=== PATIENT | female | born 1950 | race Caucasian/White ===

== ENCOUNTER 2016-11-19 02:50 | Emergency (ER) | payer OTHER ==
[~2016-11-19] VITALS: Ht 162.6 cm; Wt 127.0 kg
[2016-11-19] MEDS ORDERED: SODIUM CHLORIDE 0.9% 1,000 ML IVB ONE (03:17)
[2016-11-19 04:11] LABS: Basophils # (auto) 0 uL; Basophils % (auto) 0.5 % (0.0-2.0); Eosinophils # (auto) 0.4 uL; Eosinophils % (auto) 4.8 % (0.0-7.0); Hematocrit 39.7 % (36.0-46.0); Hemoglobin 13.9 g/dL (12.2-16.2); Lymphocytes # (auto) 2.5 uL; Lymphocytes % (auto) 30.5 % (10.0-50.0); Mean Corpuscular Hemoglobin 33.4 pg (28.0-32.0); Mean Corpuscular Hgb Conc. 34.9 g/dL (32.0-36.0); Mean Corpuscular Volume 95.7 fL (80.0-100.0); Mean Platelet Volume 7.4 fL (7.4-10.4); Monocytes # (auto) 0.7 uL; Monocytes % (auto) 7.9 % (0.0-12.0); Neutrophils # (auto) 4.7 uL; Neutrophils % (auto) 56.3 % (37.0-80.0); Platelet Count (auto) 284 10^3/uL (140-450); Red Cell Distribution Width 13.9 % (11.6-16.0); White Blood Cell 8.4 10^3/uL (4.4-10.8)
[2016-11-19 04:21] LABS: Acetaminophen < 2.0 ug/mL (10-30); Albumin 3.1 g/dL (3.4-5.0); BUN/Creatinine Ratio 25.7; Calcium 8.2 mg/dL (8.5-10.1); Salicylate 3.1 mg/dL (2.8-20.0)
[2016-11-19 04:22] LABS: Bilirubin, Total 0.2 mg/dL (0.2-1.0); Total Protein 6.8 g/dL (6.4-8.2)
[2016-11-19] MEDS ORDERED: LORazepam 2MG/ML-1ML VIAL ONE (05:07)
[2016-11-19] MEDS ORDERED: LORazepam 2MG/ML-1ML VIAL IV ONE ×2 (05:15→07:00)
[2016-11-19 05:24] LABS: Urine RBC None Seen /hpf (0 - 4)
[2016-11-19 05:35] LABS: Urine Bilirubin Negative (Negative); Urine Blood Negative /uL (Negative); Urine Color Yellow (Yellow); Urine Glucose Normal (Normal); Urine Ketone Negative (Negative); Urine Nitrite Negative (Negative); Urine Squamous Epithelial Cell FEW /hpf (<5); Urine Urobilinogen Normal (Negative)
[2016-11-19] MEDS ORDERED: diphenhdrAMINE HCL 50 MG/1 ML VL IV ONE (07:00)
[2016-11-19 14:13] VITALS: BP 116/85
== END 2016-11-19 14:30 | disposition home or self-care (01) ==
LOC: ER 02:50
DX: F10.120 Alcohol abuse with intoxication, uncomplicated (principal); G89.29 Other chronic pain; M54.9 Dorsalgia, unspecified
CPT/HCPCS: 36415; 70450; 71010; 80053; 80307; 80320; 80329; 81001; 85025; 96361; 96374; 96375; 96376; 99285; J1200; J2060; J7030; 93005; A4565

== ENCOUNTER 2018-11-18 00:57 | Emergency (ER) | payer MEDICARE, OTHER ==
[~2018-11-18] VITALS: Ht 162.6 cm; Wt 104.3 kg
[2018-11-18] MEDS ORDERED: IBUPROFEN 600 MG TAB PO ONE (01:30)
[2018-11-18 03:28] LABS: Basophils # (auto) 0 uL; Basophils % (auto) 0.5 % (0.0-2.0); Eosinophils # (auto) 0.1 uL; Eosinophils % (auto) 0.9 % (0.0-7.0); Hematocrit 42.1 % (36.0-46.0); Hemoglobin 14.5 g/dL (12.2-16.2); Lymphocytes # (auto) 1.3 uL; Lymphocytes % (auto) 15.4 % (10.0-50.0); Mean Corpuscular Hemoglobin 33.7 pg (28.0-32.0); Mean Corpuscular Hgb Conc. 34.5 g/dL (32.0-36.0); Mean Corpuscular Volume 97.7 fL (80.0-100.0); Monocytes # (auto) 0.9 uL; Monocytes % (auto) 10.8 % (0.0-12.0); Neutrophils # (auto) 6.3 uL; Neutrophils % (auto) 72.4 % (37.0-80.0); Platelet Count (auto) 158 10^3/uL (140-450); Red Blood Cells 4.31 10^6/uL (4.0-5.20); Red Cell Distribution Width 13.5 % (11.8-14.3); White Blood Cell 8.7 10^3/uL (4.4-10.8)
[2018-11-18 03:47] LABS: Anion Gap 9 (5-15); Blood Urea Nitrogen 18 mg/dL (7-18); Calcium 8.4 mg/dL (8.5-10.1); Carbon Dioxide 25 mmol/L (21-32); Chloride 101 mmol/L (98-107); Glucose 223 mg/dL (74-106); Potassium 3.7 mmol/L (3.5-5.1); Sodium 135 mmol/L (136-145)
[2018-11-18 03:52] LABS: Alanine Aminotransferase 55 U/L (13-56); Alkaline Phosphatase 88 U/L (45-117); Aspartate Aminotransferase 45 U/L (15-37); BUN/Creatinine Ratio 21.2; Bilirubin, Total 1.4 mg/dL (0.2-1.0); GFR African American 86 mL/min; GFR Non-African American 71 mL/min; Total Protein 6.9 g/dL (6.4-8.2)
[2018-11-18] MEDS ORDERED: HYDROcodone-ACET 5/325MG TAB PO ONE (05:00)
[2018-11-18 06:24] LABS: Urine Bacteria FEW /hpf (None Seen); Urine Blood Negative /uL (Negative); Urine Specific Gravity 1.022 (1.001-1.035); Urine WBC 1 /hpf (0 - 5)
[2018-11-18 07:24] VITALS: BP 121/67
== END 2018-11-18 09:21 | disposition left against medical advice (07) ==
LOC: EDBD 00:57 → ER 01:07
DX: J18.9 Pneumonia, unspecified organism (principal); I11.0 Hypertensive heart disease with heart failure; I50.9 Heart failure, unspecified; E11.9 Type 2 diabetes mellitus without complications
CPT/HCPCS: 36415; 71045; 80053; 81001; 84484; 85025; 93005

== ENCOUNTER 2019-08-08 13:55 | Emergency (ER) | payer BC, MEDICARE, OTHER ==
[~2019-08-08] VITALS: Ht 162.6 cm; Wt 86.2 kg
[2019-08-08 14:10] VITALS: BP 153/94
== END 2019-08-08 14:16 | disposition left against medical advice (07) ==
LOC: ER 13:55
DX: R51 Headache (principal); Z53.21 Procedure and treatment not carried out due to patient leaving prior to being seen by health care provider

== ENCOUNTER 2019-08-10 07:07 | Emergency (ER) | payer BC ==
[~2019-08-10] VITALS: Ht 162.6 cm; Wt 86.2 kg
[2019-08-10 07:28] VITALS: BP 169/92
== END 2019-08-10 07:47 | disposition home or self-care (01) ==
LOC: ER 07:07
DX: I11.0 Hypertensive heart disease with heart failure (principal); I50.9 Heart failure, unspecified; E11.9 Type 2 diabetes mellitus without complications; Z76.0 Encounter for issue of repeat prescription; Z88.1 Allergy status to other antibiotic agents

== ENCOUNTER 2019-12-30 10:35 | Emergency (ER) | payer BC ==
[~2019-12-30] VITALS: Ht 162.6 cm; Wt 104.3 kg
[2019-12-30 10:44] VITALS: BP 188/79
== END 2019-12-30 11:31 | disposition home or self-care (01) ==
LOC: ER 10:35
DX: S01.01XD Laceration without foreign body of scalp, subsequent encounter (principal); X58.XXXD Exposure to other specified factors, subsequent encounter

== ENCOUNTER 2020-04-25 02:12 | Inpatient (IN) | payer BC ==
[~2020-04-25] VITALS: Ht 162.6 cm; Wt 103.0 kg
[2020-04-25] MEDS ORDERED: KETOROLAC TROMETH 60MG/2ML VIAL IM ONE (02:30)
[2020-04-25] MEDS ORDERED: HYDROmorphone HCL 2 MG/ML VL IM ONE ×2 (02:30→05:45)
[2020-04-25] MEDS ORDERED: DexAMETHasone SOD PHOS 10MG/1ML VIAL INJ IM ONE (02:30)
[2020-04-25] MEDS ORDERED: ONDANSETRON HCL 4 MG/2 ML VIAL IV PRN (07:00)
[2020-04-25] MEDS ORDERED: ACETAMINOPHEN 325 MG TAB PO PRN (07:00)
[2020-04-25] MEDS ORDERED: TEMAZEPAM 15 MG CAP PO PRN (07:00)
[2020-04-25] MEDS ORDERED: DEXTROSE (50%) 50ML SYRG IV PRN (07:00)
[2020-04-25] MEDS ORDERED: MORPHINE SULFATE 4 MG/ML SYR/VIAL IV PRN (07:00)
[2020-04-25 07:24] LABS: Basophils # (auto) 0 10 ^3/uL (0-0.2); Eosinophils # (auto) 0 10 ^3/uL (0-0.8); Lymphocytes # (auto) 0.4 10 ^3/uL (0.4-5.4); Monocytes # (auto) 0.1 10 ^3/uL (0-1.3); Neutrophils # (auto) 1.9 10 ^3/uL (1.6-8.6); White Blood Cell 2.4 10^3/uL (4.4-10.8)
[2020-04-25 07:27] LABS: Basophils % (auto) 1.6 % (0.0-2.0); Eosinophils % (auto) 0.9 % (0.0-7.0); Hematocrit 40.8 % (36.0-46.0); Lymphocytes % (auto) 16.2 % (10.0-50.0); Mean Corpuscular Hemoglobin 36.4 pg (28.0-32.0); Mean Corpuscular Hgb Conc. 34.4 g/dL (32.0-36.0); Monocytes % (auto) 2.1 % (0.0-12.0); Neutrophils % (auto) 79.2 % (37.0-80.0); Platelet Count (auto) 161 10^3/uL (140-450); Red Blood Cells 3.85 10^6/uL (4.0-5.20); Red Cell Distribution Width 13.8 % (11.8-14.3)
[2020-04-25] MEDS: ACCU-CHEK COMFORT CURVE STRIP VI SCH ×4 (07:40→21:44)
[2020-04-25] MEDS: InsuLIN REG 1unit/0.01ml Soln (100units/ml) SC SCH ×3 (07:40→17:46)
[2020-04-25 07:44] LABS: Calcium 8.8 mg/dL (8.5-10.1); Potassium 4.9 mmol/L (3.5-5.1)
[2020-04-25 07:50] LABS: Albumin 3.2 g/dL (3.4-5.0); BUN/Creatinine Ratio 27.5; Bilirubin, Total 0.3 mg/dL (0.2-1.0); Total Protein 7.3 g/dL (6.4-8.2)
[2020-04-25] MEDS: HCTZ 25 MG TAB PO SCH (09:45)
[2020-04-25] MEDS: HYDROcodone-ACET 5/325MG TAB PO PRN ×2 (09:46→18:48)
[2020-04-25] MEDS: FAMOTIDINE 20 MG TAB PO SCH ×2 (09:46→21:39)
[2020-04-25] MEDS: LISINOPRIL 20 MG TAB PO SCH (09:46)
[2020-04-25] MEDS ORDERED: LISI-285 PO (12:11)
[2020-04-25] MEDS ORDERED: DULO60CA90 PO (12:11)
[2020-04-25] MEDS ORDERED: METF-490 PO (12:11)
[2020-04-25 13:00] VITALS: BP_SYST 141; BP_SYST 151; BP_DIAS 89; BP_DIAS 93
[2020-04-25] MEDS ORDERED: ROPI2TAB47 PO (14:16)
[2020-04-25] MEDS ORDERED: INFLUENZA QUAD 2020-2021 0.5 ML SYRG IM ONE (14:30)
[2020-04-25 16:56] LABS: Hepatitis B Surface Antibody Positive
[2020-04-25 17:00] VITALS: BP 133/78
[2020-04-25 17:23] LABS: Hepatitis B Surface Antigen Negative (Negative)
[2020-04-25 17:34] LABS: Hepatitis A Total Antibody Negative
[2020-04-25 18:01] LABS: Hepatitis B Core Total AB Negative; Hepatitis C Antibody Negative (Negative)
[2020-04-25 18:16] LABS: Urine Bacteria NONE SEEN /hpf (None Seen); Urine Blood Negative /uL (Negative); Urine Specific Gravity 1.026 (1.001-1.035); Urine WBC 10 /hpf (0 - 5)
[2020-04-25 18:26] LABS: Alcohol, Urine < 3.0 mg/dL (0-10); Amphetamine Screen, Urine NEGATIVE (NEGATIVE); Barbiturate Scree,Urine NEGATIVE (NEGATIVE); Benzodiazephine Screen, Urine NEGATIVE (NEGATIVE); Cannabinoid Screen, Urine NEGATIVE (NEGATIVE); Cocaine Screen, Urine NEGATIVE (NEGATIVE); Phencyclidine Screen, Urine NEGATIVE (NEGATIVE)
[2020-04-25 18:35] LABS: Opiate Scree,Urine POSITIVE (NEGATIVE)
[2020-04-25 19:51] LABS: Salicylate 3.9 mg/dL (2.8-20.0)
[2020-04-25 19:52] LABS: Acetaminophen < 2.0 ug/mL (10-30)
[2020-04-25] MEDS: MORPHINE SULF INJ 2 MG/ML SYRINGE 1ML IV PRN (21:39)
[2020-04-25 22:00] VITALS: BP 142/84
[2020-04-25] MEDS ORDERED: ATORVASTATIN 20 MG TAB PO SCH (22:00)
[2020-04-25] MEDS ORDERED: InsuLIN REG 1unit/0.01ml Soln (100units/ml) SC SCH (22:00)
[2020-04-25] MEDS ORDERED: HYDROcodone-ACET 10/325MG TAB PO PRN (23:45)
[2020-04-25] MEDS: HYDROcodone-ACET 10/325MG TAB PO PRN (23:56)
[2020-04-26] MEDS: MORPHINE SULF INJ 2 MG/ML SYRINGE 1ML IV PRN (01:45)
[2020-04-26] MEDS ORDERED: CARISOPRODOL 350 MG TAB PO PRN (02:45)
[2020-04-26] MEDS ORDERED: PRAMIPEXOLE DIHYDROCHLORIDE MO 0.25 MG TAB PO PRN (04:30)
[2020-04-26 05:00] VITALS: BP 122/72
[2020-04-26] MEDS ORDERED: NICOTINE 21MG/24 HR TOPICAL PATCH TD SCH ×2 (05:00→10:00)
[2020-04-26] MEDS ORDERED: PRAMIPEXOLE DIHYDROCHLORIDE MO 0.25 MG TAB PO ONE (05:15)
[2020-04-26] MEDS: ACCU-CHEK COMFORT CURVE STRIP VI SCH ×2 (06:38→12:09)
[2020-04-26] MEDS: InsuLIN REG 1unit/0.01ml Soln (100units/ml) SC SCH ×3 (06:42→12:10)
[2020-04-26 07:58] LABS: Basophils # (auto) 0 10 ^3/uL (0-0.2); Eosinophils # (auto) 0 10 ^3/uL (0-0.8); Monocytes # (auto) 0.7 10 ^3/uL (0-1.3); Neutrophils # (auto) 5.4 10 ^3/uL (1.6-8.6); White Blood Cell 7.1 10^3/uL (4.4-10.8)
[2020-04-26 08:01] LABS: Basophils % (auto) 0.2 % (0.0-2.0); Hematocrit 38.9 % (36.0-46.0); Hemoglobin 13.6 g/dL (12.2-16.2); Lymphocytes % (auto) 13.8 % (10.0-50.0); Mean Corpuscular Hemoglobin 36.4 pg (28.0-32.0); Mean Corpuscular Hgb Conc. 34.9 g/dL (32.0-36.0); Mean Corpuscular Volume 104.4 fL (80.0-100.0); Monocytes % (auto) 10.4 % (0.0-12.0); Neutrophils % (auto) 75.6 % (37.0-80.0); Platelet Count (auto) 176 10^3/uL (140-450); Red Blood Cells 3.73 10^6/uL (4.0-5.20)
[2020-04-26 08:15] LABS: INR 1.04 (0.9-1.15); Partial Thromboplastin Time 23.8 sec (23.0-31.2)
[2020-04-26 08:29] LABS: Potassium 4.2 mmol/L (3.5-5.1)
[2020-04-26 08:37] LABS: Albumin 3.3 g/dL (3.4-5.0); BUN/Creatinine Ratio 46.2; Bilirubin, Total 0.8 mg/dL (0.2-1.0); Total Protein 7.4 g/dL (6.4-8.2)
[2020-04-26] MEDS: FAMOTIDINE 20 MG TAB PO SCH (09:27)
[2020-04-26] MEDS: HYDROcodone-ACET 10/325MG TAB PO PRN ×2 (09:28→15:52)
[2020-04-26] MEDS: HCTZ 25 MG TAB PO SCH (09:48)
[2020-04-26] MEDS: LISINOPRIL 20 MG TAB PO SCH (09:49)
== END 2020-04-26 18:00 | disposition home or self-care (01) | DRG 552 ==
LOC: EDBD 02:12 → ER 02:17 → OVERFLOW 02:18 → WEST WING 10:26
PROVIDERS: ADMIT Nurse Practitioner; ATTEND Internal Medicine
DX: M51.35 Other intervertebral disc degeneration, thoracolumbar region (principal); E11.9 Type 2 diabetes mellitus without complications; E66.01 Morbid (severe) obesity due to excess calories; G25.81 Restless legs syndrome; G89.29 Other chronic pain; I11.0 Hypertensive heart disease with heart failure; I50.9 Heart failure, unspecified; F32.9 Major depressive disorder, single episode, unspecified; Z98.51 Tubal ligation status; Z88.1 Allergy status to other antibiotic agents; R94.5 Abnormal results of liver function studies; Z68.39 Body mass index [BMI] 39.0-39.9, adult
CPT/HCPCS: 36415; 72131; 76705; 80053; 80307; 80329; 81001; 82962; 83036; 84443; 85025; 85610; 85730; 86704; 86706; 86708; 86803; 87340; 96372; G0378; J1100; J1815; J1885

== ENCOUNTER 2020-10-22 08:12 | Emergency (ER) | payer BC, OTHER ==
[~2020-10-22] VITALS: Ht 162.6 cm; Wt 108.9 kg
[~2020-10-22 08:12] MED LIST: DULO60CA90 PO; LISI-285 PO; METF-490 PO; ROPI2TAB47 PO
[2020-10-22] MEDS ORDERED: MORPHINE SULF INJ 2 MG/ML SYRINGE 1ML IV ONE (09:00)
[2020-10-22] MEDS ORDERED: ONDANSETRON HCL 4 MG/2 ML VIAL IV ONE (09:00)
[2020-10-22] MEDS ORDERED: FUROSEMIDE 40 MG/4 ML VIAL IV ONE (09:00)
[2020-10-22 09:12] LABS: Basophils # (auto) 0 10 ^3/uL (0-0.2); Eosinophils # (auto) 0.4 10 ^3/uL (0-0.8); Monocytes # (auto) 0.6 10 ^3/uL (0-1.3); White Blood Cell 6.1 10^3/uL (4.4-10.8)
[2020-10-22 09:14] LABS: Basophils % (auto) 0.7 % (0.0-2.0); Eosinophils % (auto) 6.2 % (0.0-7.0); Hematocrit 40.4 % (36.0-46.0); Lymphocytes # (auto) 1.1 10 ^3/uL (0.4-5.4); Lymphocytes % (auto) 18.3 % (10.0-50.0); Mean Corpuscular Hemoglobin 35.6 pg (28.0-32.0); Mean Corpuscular Hgb Conc. 34.6 g/dL (32.0-36.0); Mean Corpuscular Volume 102.9 fL (80.0-100.0); Monocytes % (auto) 9.2 % (0.0-12.0); Neutrophils % (auto) 65.6 % (37.0-80.0); Nucleated Red Blood Cells % 0.2 %; Platelet Count (auto) 179 10^3/uL (140-450); Red Blood Cells 3.93 10^6/uL (4.0-5.20); Red Cell Distribution Width 13.5 % (11.8-14.3)
[2020-10-22 09:20] LABS: Urine Bacteria NONE SEEN /hpf (None Seen); Urine Blood Negative /uL (Negative); Urine Specific Gravity 1.021 (1.001-1.035); Urine WBC 2 /hpf (0 - 5)
[2020-10-22 09:30] LABS: Albumin 3.1 g/dL (3.4-5.0); Calcium 9.1 mg/dL (8.5-10.1); Potassium 3.7 mmol/L (3.5-5.1)
[2020-10-22 09:33] LABS: BUN/Creatinine Ratio 16.7; Bilirubin, Total 0.9 mg/dL (0.2-1.0); Total Protein 7.3 g/dL (6.4-8.2)
[2020-10-22 10:39] VITALS: BP 139/84
[2020-10-22] MEDS ORDERED: KETOROLAC TROMETH 30 MG/ML 1ML VIAL IV ONE (10:45)
== END 2020-10-22 11:55 | disposition left against medical advice (07) ==
LOC: ER 08:12
DX: I11.0 Hypertensive heart disease with heart failure (principal); I50.9 Heart failure, unspecified; E11.9 Type 2 diabetes mellitus without complications; I10 Essential (primary) hypertension; Z88.1 Allergy status to other antibiotic agents; Z88.8 Allergy status to other drugs, medicaments and biological substances; Z79.4 Long term (current) use of insulin
CPT/HCPCS: 36415; 80053; 81001; 83880; 85025; 96374; 96375; 99284; J1885; J1940; J2270; J2405

== ENCOUNTER 2020-11-06 19:22 | Emergency (ER) | payer OTHER ==
[~2020-11-06] VITALS: Ht 162.6 cm; Wt 117.9 kg
[2020-11-06 19:23] VITALS: BP 139/83
== END 2020-11-06 20:09 | disposition left against medical advice (07) ==
LOC: ER 19:28
DX: M79.89 Other specified soft tissue disorders (principal); Z53.21 Procedure and treatment not carried out due to patient leaving prior to being seen by health care provider

== ENCOUNTER 2020-11-08 08:55 | Emergency (ER) | payer OTHER ==
[~2020-11-08] VITALS: Ht 162.6 cm; Wt 117.9 kg
[2020-11-08] MEDS ORDERED: CLINDAMYCIN 600MG IV 50 ML IV ONE (09:30)
[2020-11-08] MEDS ORDERED: MORPHINE SULF INJ 2 MG/ML SYRINGE 1ML IV ONE (09:45)
[2020-11-08] MEDS ORDERED: ONDANSETRON HCL 4 MG/2 ML VIAL IV ONE (09:45)
[2020-11-08 09:53] LABS: Hemoglobin 13.6 g/dL (12.2-16.2); Lymphocytes # (auto) 1.3 10 ^3/uL (0.4-5.4); Monocytes # (auto) 0.6 10 ^3/uL (0-1.3); Nucleated Red Blood Cells % 0.1 %
[2020-11-08 09:55] LABS: Basophils # (auto) 0.1 10 ^3/uL (0-0.2); Basophils % (auto) 0.8 % (0.0-2.0); Eosinophils # (auto) 0.2 10 ^3/uL (0-0.8); Eosinophils % (auto) 3.7 % (0.0-7.0); Lymphocytes % (auto) 19.3 % (10.0-50.0); Mean Corpuscular Hemoglobin 36.8 pg (28.0-32.0); Mean Corpuscular Hgb Conc. 35.8 g/dL (32.0-36.0); Mean Corpuscular Volume 102.7 fL (80.0-100.0); Monocytes % (auto) 9.3 % (0.0-12.0); Neutrophils # (auto) 4.5 10 ^3/uL (1.6-8.6); Neutrophils % (auto) 66.9 % (37.0-80.0); Platelet Count (auto) 163 10^3/uL (140-450); Red Cell Distribution Width 13.2 % (11.8-14.3); White Blood Cell 6.7 10^3/uL (4.4-10.8)
[2020-11-08 10:10] LABS: Calcium 9.1 mg/dL (8.5-10.1); Potassium 4.3 mmol/L (3.5-5.1)
[2020-11-08 10:13] LABS: Bilirubin, Total 0.8 mg/dL (0.2-1.0); Total Protein 7.3 g/dL (6.4-8.2)
[2020-11-08 10:58] LABS: Urine WBC None Seen /hpf (0 - 5)
[2020-11-08] MEDS ORDERED: LORazepam 2MG/ML-1ML VIAL IV ONE (11:00)
[2020-11-08 11:34] LABS: Urine Bacteria NONE SEEN /hpf (None Seen); Urine Blood Negative /uL (Negative)
[2020-11-08 12:58] VITALS: BP 123/49
[2020-11-08] MEDS ORDERED: InsuLIN REG 1unit/0.01ml Soln (100units/ml) IV ONE (13:00)
[2020-11-08] MEDS ORDERED: FUROSEMIDE 20 MG/2 ML VIAL IV ONE (13:30)
[2020-11-08] MEDS ORDERED: HYDROmorphone HCL 2 MG/ML VL IV ONE (13:30)
== END 2020-11-08 14:28 | disposition admitted as inpatient to this hospital (09) ==
LOC: ER 08:55
DX: L03.115 Cellulitis of right lower limb (principal); L03.116 Cellulitis of left lower limb; I11.0 Hypertensive heart disease with heart failure; I50.9 Heart failure, unspecified; E11.9 Type 2 diabetes mellitus without complications; Z88.1 Allergy status to other antibiotic agents; Z88.8 Allergy status to other drugs, medicaments and biological substances; Z79.899 Other long term (current) drug therapy; Z20.822 Contact with and (suspected) exposure to COVID-19
CPT/HCPCS: 36415; 80053; 81001; 82962; 83605; 83880; 85025; 87040; 87426; 93970; 96365; 96375; 99285; J1170; J1815; J1940; J2060; J2270; J2405; J3490

== ENCOUNTER 2020-11-12 10:12 | Emergency (ER) | payer OTHER ==
[~2020-11-12] VITALS: Ht 162.6 cm; Wt 113.4 kg
[2020-11-12 10:55] LABS: Basophils # (auto) 0 10 ^3/uL (0-0.2); Eosinophils # (auto) 0.2 10 ^3/uL (0-0.8)
[2020-11-12 10:56] LABS: Basophils % (auto) 0.6 % (0.0-2.0); Eosinophils % (auto) 3.2 % (0.0-7.0); Hematocrit 41.1 % (36.0-46.0); Hemoglobin 14.3 g/dL (12.2-16.2); Lymphocytes # (auto) 1.8 10 ^3/uL (0.4-5.4); Lymphocytes % (auto) 26.6 % (10.0-50.0); Mean Corpuscular Hemoglobin 36.1 pg (28.0-32.0); Mean Corpuscular Hgb Conc. 34.9 g/dL (32.0-36.0); Mean Corpuscular Volume 103.5 fL (80.0-100.0); Monocytes # (auto) 0.9 10 ^3/uL (0-1.3); Monocytes % (auto) 12.8 % (0.0-12.0); Neutrophils # (auto) 3.8 10 ^3/uL (1.6-8.6); Neutrophils % (auto) 56.8 % (37.0-80.0); Platelet Count (auto) 190 10^3/uL (140-450); Red Blood Cells 3.97 10^6/uL (4.0-5.20); Red Cell Distribution Width 13.6 % (11.8-14.3); White Blood Cell 6.7 10^3/uL (4.4-10.8)
[2020-11-12 11:12] LABS: Albumin 3.1 g/dL (3.4-5.0); Calcium 9.5 mg/dL (8.5-10.1); Potassium 3.9 mmol/L (3.5-5.1)
[2020-11-12 11:16] LABS: BUN/Creatinine Ratio 22.4; Bilirubin, Total 1.3 mg/dL (0.2-1.0); Total Protein 7.8 g/dL (6.4-8.2)
[2020-11-12 13:08] VITALS: BP 121/67
== END 2020-11-12 13:10 | disposition home or self-care (01) ==
LOC: ER 10:12
DX: L03.115 Cellulitis of right lower limb (principal); L03.116 Cellulitis of left lower limb; I10 Essential (primary) hypertension; E11.9 Type 2 diabetes mellitus without complications; Z79.899 Other long term (current) drug therapy; Z88.1 Allergy status to other antibiotic agents; Z88.8 Allergy status to other drugs, medicaments and biological substances
CPT/HCPCS: 36415; 80053; 85025

== ENCOUNTER 2020-11-19 10:19 | Inpatient (IN) | payer BC, OTHER ==
[~2020-11-19] VITALS: Ht 162.6 cm; Wt 105.3 kg
[2020-11-19 10:45] LABS: Basophils # (auto) 0 10 ^3/uL (0-0.2); Eosinophils # (auto) 0.2 10 ^3/uL (0-0.8); Hemoglobin 13.3 g/dL (12.2-16.2); Lymphocytes # (auto) 0.9 10 ^3/uL (0.4-5.4); Monocytes # (auto) 0.5 10 ^3/uL (0-1.3); Neutrophils # (auto) 4.2 10 ^3/uL (1.6-8.6); White Blood Cell 5.9 10^3/uL (4.4-10.8)
[2020-11-19 10:46] LABS: Basophils % (auto) 0.6 % (0.0-2.0); Hematocrit 37.7 % (36.0-46.0); Lymphocytes % (auto) 16.2 % (10.0-50.0); Mean Corpuscular Hemoglobin 35.8 pg (28.0-32.0); Mean Corpuscular Hgb Conc. 35.4 g/dL (32.0-36.0); Mean Corpuscular Volume 101.2 fL (80.0-100.0); Neutrophils % (auto) 71.2 % (37.0-80.0); Nucleated Red Blood Cells % 0.1 %; Platelet Count (auto) 179 10^3/uL (140-450); Red Blood Cells 3.73 10^6/uL (4.0-5.20); Red Cell Distribution Width 12.8 % (11.8-14.3)
[2020-11-19 11:04] LABS: Albumin 2.9 g/dL (3.4-5.0); Calcium 8.8 mg/dL (8.5-10.1); Magnesium 1.7 mg/dL (1.6-2.6); Potassium 3.8 mmol/L (3.5-5.1)
[2020-11-19 11:06] LABS: Bilirubin, Total 0.6 mg/dL (0.2-1.0); Total Protein 7.4 g/dL (6.4-8.2)
[2020-11-19] MEDS ORDERED: MORPHINE SULFATE 4 MG/ML SYR/VIAL IV ONE (12:45)
[2020-11-19] MEDS ORDERED: ONDANSETRON HCL 4 MG/2 ML VIAL IV ONE (12:45)
[2020-11-19] MEDS ORDERED: CLINDAMYCIN 600MG IV 50 ML IV ONE (12:45)
[2020-11-19 17:20] LABS: Urine Bacteria FEW /hpf (None Seen); Urine Blood Negative /uL (Negative); Urine WBC 3 /hpf (0 - 5)
[2020-11-19] MEDS ORDERED: MORPHINE SULF INJ 2 MG/ML SYRINGE 1ML IV PRN (18:30)
[2020-11-19] MEDS ORDERED: ACETAMINOPHEN 325 MG TAB PO PRN (18:30)
[2020-11-19] MEDS ORDERED: DEXTROSE (50%) 50ML SYRG IV PRN (18:30)
[2020-11-19] MEDS ORDERED: NITROGLYCERIN 0.4 MG SL TAB SL PRN (18:30)
[2020-11-19] MEDS ORDERED: MORPHINE SULF INJ 2 MG/ML SYRINGE 1ML ONE (19:04)
[2020-11-19] MEDS: MORPHINE SULF INJ 2 MG/ML SYRINGE 1ML IV PRN (19:08)
[2020-11-19 19:13] LABS: Cholesterol 176 mg/dL (< 200)
[2020-11-19 19:17] LABS: HDL Cholesterol 48 mg/dL (40-59); LDL Cholesterol 107 mg/dL (< 100); Triglycerides 126 mg/dL (< 150)
[2020-11-19 22:00] VITALS: BP 137/70
[2020-11-19] MEDS: CLINDAMYCIN 600MG IV 50 ML IV SCH (22:25)
[2020-11-19] MEDS: ACCU-CHEK COMFORT CURVE STRIP VI SCH (22:25)
[2020-11-19] MEDS: DULoxetine HCL 30 MG CAP PO SCH (22:25)
[2020-11-19] MEDS: InsuLIN REG 1unit/0.01ml Soln (100units/ml) SC SCH (22:26)
[2020-11-19] MEDS: HYDROcodone-ACET 5/325MG TAB PO PRN (22:50)
[2020-11-20] VITALS (8 sets, daily range): BP systolic 85–137; BP diastolic 38–70
[2020-11-20] MEDS: MORPHINE SULF INJ 2 MG/ML SYRINGE 1ML IV PRN ×3 (01:10→15:41)
[2020-11-20 03:26] LABS: Eosinophils # (auto) 0.4 10 ^3/uL (0-0.8); Eosinophils % (auto) 6.3 % (0.0-7.0); Nucleated Red Blood Cells % 0.1 %
[2020-11-20 03:29] LABS: Basophils # (auto) 0 10 ^3/uL (0-0.2); Basophils % (auto) 0.8 % (0.0-2.0); Hematocrit 36.2 % (36.0-46.0); Hemoglobin 12.5 g/dL (12.2-16.2); Lymphocytes # (auto) 1.2 10 ^3/uL (0.4-5.4); Lymphocytes % (auto) 19.4 % (10.0-50.0); Mean Corpuscular Hemoglobin 35.1 pg (28.0-32.0); Mean Corpuscular Hgb Conc. 34.6 g/dL (32.0-36.0); Mean Corpuscular Volume 101.4 fL (80.0-100.0); Monocytes # (auto) 0.6 10 ^3/uL (0-1.3); Monocytes % (auto) 9.8 % (0.0-12.0); Neutrophils # (auto) 3.9 10 ^3/uL (1.6-8.6); Neutrophils % (auto) 63.7 % (37.0-80.0); Platelet Count (auto) 162 10^3/uL (140-450); Red Blood Cells 3.57 10^6/uL (4.0-5.20); Red Cell Distribution Width 12.7 % (11.8-14.3); White Blood Cell 6.1 10^3/uL (4.4-10.8)
[2020-11-20 03:44] LABS: Potassium 4.2 mmol/L (3.5-5.1)
[2020-11-20 03:45] LABS: BUN/Creatinine Ratio 21.5; Calcium 8.7 mg/dL (8.5-10.1)
[2020-11-20] MEDS: CLINDAMYCIN 600MG IV 50 ML IV SCH ×3 (05:51→21:40)
[2020-11-20] MEDS: ACCU-CHEK COMFORT CURVE STRIP VI SCH ×4 (05:51→21:40)
[2020-11-20] MEDS: InsuLIN REG 1unit/0.01ml Soln (100units/ml) SC SCH ×4 (05:52→21:54)
[2020-11-20] MEDS: HYDROcodone-ACET 5/325MG TAB PO PRN ×2 (05:58→12:34)
[2020-11-20] MEDS: FUROSEMIDE 20 MG/2 ML VIAL IV SCH ×2 (06:00→17:01)
[2020-11-20] MEDS: POTASSIUM CHL 20 Meq TABLET PO SCH (09:13)
[2020-11-20] MEDS: DULoxetine HCL 30 MG CAP PO SCH ×2 (09:13→21:40)
[2020-11-20] MEDS: cefTRIAXone 1GM/50ML D5W 50 ML IV SCH (09:13)
[2020-11-20] MEDS ORDERED: PRAMIPEXOLE DIHYDROCHLORIDE MO 0.25 MG TAB PO ONE (14:15)
[2020-11-20] MEDS: LORazepam 2MG/ML-1ML VIAL IV PRN (21:55)
[2020-11-21] MEDS: MORPHINE SULF INJ 2 MG/ML SYRINGE 1ML IV PRN ×4 (02:34→22:11)
[2020-11-21 04:38] VITALS: BP 96/65
[2020-11-21] MEDS: HYDROcodone-ACET 5/325MG TAB PO PRN ×3 (05:00→20:38)
[2020-11-21 05:20] LABS: Basophils # (auto) 0 10 ^3/uL (0-0.2); Eosinophils # (auto) 0.4 10 ^3/uL (0-0.8); Eosinophils % (auto) 7.1 % (0.0-7.0); Hemoglobin 12.8 g/dL (12.2-16.2); Lymphocytes % (auto) 20.2 % (10.0-50.0); Monocytes # (auto) 0.5 10 ^3/uL (0-1.3); Monocytes % (auto) 10.1 % (0.0-12.0); Neutrophils # (auto) 3.1 10 ^3/uL (1.6-8.6); Nucleated Red Blood Cells % 0.1 %
[2020-11-21 05:24] LABS: Basophils % (auto) 0.7 % (0.0-2.0); Hematocrit 36.6 % (36.0-46.0); Mean Corpuscular Hemoglobin 35.8 pg (28.0-32.0); Mean Corpuscular Volume 102.2 fL (80.0-100.0); Neutrophils % (auto) 61.9 % (37.0-80.0); Platelet Count (auto) 158 10^3/uL (140-450); Red Blood Cells 3.58 10^6/uL (4.0-5.20); Red Cell Distribution Width 13.2 % (11.8-14.3)
[2020-11-21] MEDS: LORazepam 2MG/ML-1ML VIAL IV PRN ×2 (05:25→19:58)
[2020-11-21] MEDS: CLINDAMYCIN 600MG IV 50 ML IV SCH ×3 (05:26→21:17)
[2020-11-21] MEDS: FUROSEMIDE 20 MG/2 ML VIAL IV SCH ×2 (05:26→17:25)
[2020-11-21 05:57] LABS: Potassium 4.3 mmol/L (3.5-5.1)
[2020-11-21 06:03] LABS: Calcium 8.8 mg/dL (8.5-10.1)
[2020-11-21] MEDS: ACCU-CHEK COMFORT CURVE STRIP VI SCH ×4 (06:16→21:12)
[2020-11-21] MEDS: InsuLIN REG 1unit/0.01ml Soln (100units/ml) SC SCH ×4 (06:21→21:23)
[2020-11-21 09:00] VITALS: BP 92/56
[2020-11-21] MEDS: cefTRIAXone 1GM/50ML D5W 50 ML IV SCH (09:44)
[2020-11-21] MEDS: DULoxetine HCL 30 MG CAP PO SCH ×2 (09:46→21:16)
[2020-11-21] MEDS: POTASSIUM CHL 20 Meq TABLET PO SCH (09:46)
[2020-11-21] MEDS ORDERED: THIAMINE HCL 100 MG TAB PO ONE (10:30)
[2020-11-21 13:00] VITALS: BP 112/79
[2020-11-21 16:57] VITALS: BP 125/73
[2020-11-21] MEDS: PRAMIPEXOLE DIHYDROCHLORIDE MO 0.25 MG TAB PO SCH (21:17)
[2020-11-21 22:00] VITALS: BP 104/61
[2020-11-22] MEDS: HYDROcodone-ACET 5/325MG TAB PO PRN (02:43)
[2020-11-22] MEDS: MORPHINE SULF INJ 2 MG/ML SYRINGE 1ML IV PRN ×3 (04:39→22:01)
[2020-11-22 05:00] VITALS: BP 115/54
[2020-11-22 05:34] LABS: BUN/Creatinine Ratio 33.3; Calcium 9.1 mg/dL (8.5-10.1); Potassium 4.2 mmol/L (3.5-5.1)
[2020-11-22] MEDS: FUROSEMIDE 20 MG/2 ML VIAL IV SCH ×2 (06:12→17:38)
[2020-11-22] MEDS: ACCU-CHEK COMFORT CURVE STRIP VI SCH ×4 (06:13→22:15)
[2020-11-22] MEDS: CLINDAMYCIN 600MG IV 50 ML IV SCH ×3 (06:13→21:48)
[2020-11-22] MEDS: InsuLIN REG 1unit/0.01ml Soln (100units/ml) SC SCH ×4 (06:25→22:09)
[2020-11-22] MEDS: LORazepam 2MG/ML-1ML VIAL IV PRN ×2 (06:29→12:29)
[2020-11-22 08:53] VITALS: BP 106/70
[2020-11-22] MEDS ORDERED: ADENOSINE 92 MG in GIVE UN-DILUTED 0 ML IV ONE (09:30)
[2020-11-22] MEDS: levoFLOXacin 500 MG TAB PO SCH (10:00)
[2020-11-22] MEDS: POTASSIUM CHL 20 Meq TABLET PO SCH (10:00)
[2020-11-22] MEDS: THIAMINE HCL 100 MG TAB PO SCH (10:00)
[2020-11-22] MEDS: DULoxetine HCL 30 MG CAP PO SCH ×2 (10:00→21:48)
[2020-11-22 12:37] VITALS: BP 126/58
[2020-11-22 17:09] VITALS: BP 116/86
[2020-11-22] MEDS: PRAMIPEXOLE DIHYDROCHLORIDE MO 0.25 MG TAB PO SCH (21:48)
[2020-11-22 22:00] VITALS: BP 131/70
[2020-11-23] MEDS: MORPHINE SULF INJ 2 MG/ML SYRINGE 1ML IV PRN (02:39)
[2020-11-23] MEDS: LORazepam 2MG/ML-1ML VIAL IV PRN ×2 (04:47→17:10)
[2020-11-23 05:00] VITALS: BP 99/53
[2020-11-23 05:28] LABS: Eosinophils # (auto) 0.2 10 ^3/uL (0-0.8); Lymphocytes # (auto) 1.1 10 ^3/uL (0.4-5.4); Monocytes # (auto) 0.4 10 ^3/uL (0-1.3)
[2020-11-23 05:30] LABS: Basophils # (auto) 0 10 ^3/uL (0-0.2); Basophils % (auto) 0.5 % (0.0-2.0); Eosinophils % (auto) 5.5 % (0.0-7.0); Hematocrit 38.4 % (36.0-46.0); Hemoglobin 13.4 g/dL (12.2-16.2); Lymphocytes % (auto) 27.3 % (10.0-50.0); Mean Corpuscular Hemoglobin 35.3 pg (28.0-32.0); Mean Corpuscular Hgb Conc. 34.9 g/dL (32.0-36.0); Mean Corpuscular Volume 101.4 fL (80.0-100.0); Monocytes % (auto) 10.3 % (0.0-12.0); Neutrophils # (auto) 2.3 10 ^3/uL (1.6-8.6); Neutrophils % (auto) 56.4 % (37.0-80.0); Nucleated Red Blood Cells % 0.3 %; Platelet Count (auto) 163 10^3/uL (140-450); Red Blood Cells 3.79 10^6/uL (4.0-5.20); Red Cell Distribution Width 13.1 % (11.8-14.3); White Blood Cell 4.1 10^3/uL (4.4-10.8)
[2020-11-23] MEDS: FUROSEMIDE 20 MG/2 ML VIAL IV SCH ×2 (06:00→18:01)
[2020-11-23 06:04] LABS: Chloride 105 mmol/L (98-107); Potassium 3.8 mmol/L (3.5-5.1); Sodium 140 mmol/L (136-145)
[2020-11-23] MEDS: CLINDAMYCIN 600MG IV 50 ML IV SCH ×2 (06:19→13:20)
[2020-11-23 06:26] LABS: Alanine Aminotransferase 46 U/L (13-56); Albumin 2.8 g/dL (3.4-5.0); Alkaline Phosphatase 110 U/L (45-117); Anion Gap 7 (5-15); Aspartate Aminotransferase 71 U/L (15-37); BUN/Creatinine Ratio 29.3; Bilirubin, Total 0.6 mg/dL (0.2-1.0); Blood Urea Nitrogen 22 mg/dL (7-18); Carbon Dioxide 28 mmol/L (21-32); GFR African American 99 mL/min; GFR Non-African American 81 mL/min; Glucose 164 mg/dL (74-106); Total Protein 7.2 g/dL (6.4-8.2)
[2020-11-23] MEDS: InsuLIN REG 1unit/0.01ml Soln (100units/ml) SC SCH ×3 (06:49→17:16)
[2020-11-23 09:00] VITALS: BP 125/66
[2020-11-23] MEDS: DULoxetine HCL 30 MG CAP PO SCH (09:38)
[2020-11-23] MEDS: THIAMINE HCL 100 MG TAB PO SCH (09:38)
[2020-11-23] MEDS: levoFLOXacin 500 MG TAB PO SCH (09:39)
[2020-11-23] MEDS: POTASSIUM CHL 20 Meq TABLET PO SCH (09:39)
[2020-11-23] MEDS: ACCU-CHEK COMFORT CURVE STRIP VI SCH ×2 (11:30→17:15)
[2020-11-23] MEDS: HYDROcodone-ACET 10/325MG TAB PO PRN ×2 (12:14→19:19)
[2020-11-23 12:57] VITALS: BP 143/82
[2020-11-23 16:45] VITALS: BP 139/69
== END 2020-11-23 20:25 | disposition left against medical advice (07) | DRG 602 ==
LOC: ER 10:19 → TELE 18:22 → TELE-CENTR 21:25
PROVIDERS: ADMIT Nurse Practitioner Acute Care; ATTEND Internal Medicine
DX: L03.115 Cellulitis of right lower limb (principal); I50.23 Acute on chronic systolic (congestive) heart failure; L03.311 Cellulitis of abdominal wall; E87.1 Hypo-osmolality and hyponatremia; I42.9 Cardiomyopathy, unspecified; N39.0 Urinary tract infection, site not specified; J45.909 Unspecified asthma, uncomplicated; F32.9 Major depressive disorder, single episode, unspecified; G25.81 Restless legs syndrome; F43.10 Post-traumatic stress disorder, unspecified; E11.9 Type 2 diabetes mellitus without complications; I11.0 Hypertensive heart disease with heart failure; I70.0 Atherosclerosis of aorta; E66.01 Morbid (severe) obesity due to excess calories; F10.10 Alcohol abuse, uncomplicated; Z20.822 Contact with and (suspected) exposure to COVID-19; Z88.8 Allergy status to other drugs, medicaments and biological substances; F17.210 Nicotine dependence, cigarettes, uncomplicated; J44.9 Chronic obstructive pulmonary disease, unspecified; Z79.84 Long term (current) use of oral hypoglycemic drugs; Z79.899 Other long term (current) drug therapy; Z96.653 Presence of artificial knee joint, bilateral; Z53.29 Procedure and treatment not carried out because of patient's decision for other reasons; Z68.39 Body mass index [BMI] 39.0-39.9, adult; L03.116 Cellulitis of left lower limb
CPT/HCPCS: 36415; 71045; 71046; 73700; 78452; 80048; 80053; 80061; 81001; 82607; 82962; 83036; 83735; 83880; 84443; 84484; 85025; 85652; 87086; 87426; 93005; 93017; 93306; 96365; 96366; 96375; G0378; J0153; J0696; J1815; J2405; J3490

== ENCOUNTER 2020-11-27 07:09 | Inpatient (IN) | payer BC, OTHER ==
[~2020-11-27] VITALS: Ht 162.6 cm; Wt 95.0 kg
[2020-11-27] MEDS ORDERED: SODIUM CHLORIDE 0.9% 500 ML IV ONE (08:30)
[2020-11-27] MEDS ORDERED: cefTRIAXone 1GM/50ML D5W 50 ML IV ONE (08:30)
[2020-11-27] MEDS ORDERED: SODIUM CHLORIDE 0.9% 1,000 ML IV ONE (08:30)
[2020-11-27 09:44] LABS: Albumin 3.1 g/dL (3.4-5.0); BUN/Creatinine Ratio 15.7; Calcium 8.9 mg/dL (8.5-10.1); Magnesium 2.1 mg/dL (1.6-2.6); Potassium 4.1 mmol/L (3.5-5.1)
[2020-11-27] MEDS ORDERED: ONDANSETRON HCL 4 MG/2 ML VIAL IV ONE (09:45)
[2020-11-27] MEDS ORDERED: MORPHINE SULF INJ 2 MG/ML SYRINGE 1ML IV ONE (09:45)
[2020-11-27 09:47] LABS: Bilirubin, Total 0.4 mg/dL (0.2-1.0); Total Protein 7.8 g/dL (6.4-8.2)
[2020-11-27 10:27] LABS: Basophils # (auto) 0.1 10 ^3/uL (0-0.2); Eosinophils # (auto) 0.3 10 ^3/uL (0-0.8); Eosinophils % (auto) 4.7 % (0.0-7.0); Hematocrit 40.1 % (36.0-46.0); Lymphocytes # (auto) 1.8 10 ^3/uL (0.4-5.4); Lymphocytes % (auto) 33.3 % (10.0-50.0); Mean Corpuscular Hemoglobin 35.1 pg (28.0-32.0); Mean Corpuscular Hgb Conc. 34.8 g/dL (32.0-36.0); Monocytes # (auto) 0.6 10 ^3/uL (0-1.3); Monocytes % (auto) 10.9 % (0.0-12.0); Neutrophils # (auto) 2.7 10 ^3/uL (1.6-8.6); Neutrophils % (auto) 50.1 % (37.0-80.0); Platelet Count (auto) 185 10^3/uL (140-450); Red Blood Cells 3.97 10^6/uL (4.0-5.20); Red Cell Distribution Width 12.8 % (11.8-14.3); White Blood Cell 5.4 10^3/uL (4.4-10.8)
[2020-11-27 10:33] LABS: Urine Bacteria NONE SEEN /hpf (None Seen); Urine Blood Negative /uL (Negative); Urine Specific Gravity 1.012 (1.001-1.035); Urine WBC 1 /hpf (0 - 5)
[2020-11-27] MEDS ORDERED: FUROSEMIDE 40 MG/4 ML VIAL IV ONE (11:30)
[2020-11-27] MEDS ORDERED: SPIRONOLACTONE 25 MG TAB PO ONE (11:30)
[2020-11-27] MEDS ORDERED: KETOROLAC TROMETH 30 MG/ML 1ML VIAL ONE (11:40)
[2020-11-27] MEDS ORDERED: KETOROLAC TROMETH 30 MG/ML 1ML VIAL IV ONE (11:45)
[2020-11-27] MEDS ORDERED: NITROGLYCERIN 0.4 MG SL TAB SL PRN (12:00)
[2020-11-27] MEDS ORDERED: DEXTROSE (50%) 50ML SYRG IV PRN (12:00)
[2020-11-27] MEDS ORDERED: MORPHINE SULF INJ 2 MG/ML SYRINGE 1ML IV PRN (12:00)
[2020-11-27] MEDS ORDERED: ONDANSETRON HCL 4 MG/2 ML VIAL IV PRN (12:00)
[2020-11-27] MEDS: HYDROmorphone HCL 2 MG/ML VL IV PRN ×3 (13:22→21:45)
[2020-11-27] MEDS: CLINDAMYCIN 300MG IV 50 ML IV SCH ×2 (14:16→22:00)
[2020-11-27] MEDS: LORazepam 2MG/ML-1ML VIAL IV PRN (16:45)
[2020-11-27 17:00] VITALS: BP 154/79
[2020-11-27] MEDS: ACCU-CHEK COMFORT CURVE STRIP VI SCH ×2 (17:00→22:00)
[2020-11-27 17:24] VITALS: BP 151/76
[2020-11-27] MEDS: InsuLIN REG 1unit/0.01ml Soln (100units/ml) SC SCH ×2 (17:51→22:00)
[2020-11-27 20:00] VITALS: BP 145/55
[2020-11-27 22:00] VITALS: BP 145/55
[2020-11-27] MEDS ORDERED: ROPINIROLE HYDROCHLORIDE 2 MG PO SCH (22:00)
[2020-11-27] MEDS: PRAMIPEXOLE DIHYDROCHLORIDE MO 0.25 MG TAB PO SCH (22:00)
[2020-11-27] MEDS: DULoxetine HCL 30 MG CAP PO SCH (22:00)
[2020-11-28] MEDS: LORazepam 2MG/ML-1ML VIAL IV PRN ×2 (00:47→12:04)
[2020-11-28] MEDS: HYDROmorphone HCL 2 MG/ML VL IV PRN ×5 (03:40→23:14)
[2020-11-28 05:00] VITALS: BP 133/71
[2020-11-28] MEDS: CLINDAMYCIN 300MG IV 50 ML IV SCH ×3 (05:55→21:51)
[2020-11-28] MEDS: InsuLIN REG 1unit/0.01ml Soln (100units/ml) SC SCH ×4 (06:40→22:48)
[2020-11-28] MEDS: ACCU-CHEK COMFORT CURVE STRIP VI SCH ×4 (06:44→22:37)
[2020-11-28 09:01] VITALS: BP 135/89
[2020-11-28] MEDS: DULoxetine HCL 30 MG CAP PO SCH ×2 (10:03→21:51)
[2020-11-28] MEDS: cefTRIAXone 1GM/50ML D5W 50 ML IV SCH (10:03)
[2020-11-28 12:22] VITALS: BP 131/70
[2020-11-28 16:54] VITALS: BP 119/78
[2020-11-28] MEDS: PRAMIPEXOLE DIHYDROCHLORIDE MO 0.25 MG TAB PO SCH (21:52)
[2020-11-28 22:00] VITALS: BP 105/66
[2020-11-29] MEDS: LORazepam 2MG/ML-1ML VIAL IV PRN (01:15)
[2020-11-29 05:00] VITALS: BP 125/61
[2020-11-29] MEDS: CLINDAMYCIN 300MG IV 50 ML IV SCH (05:27)
[2020-11-29] MEDS: InsuLIN REG 1unit/0.01ml Soln (100units/ml) SC SCH ×2 (05:27→11:34)
[2020-11-29] MEDS: ACCU-CHEK COMFORT CURVE STRIP VI SCH ×2 (05:28→11:26)
[2020-11-29] MEDS: HYDROmorphone HCL 2 MG/ML VL IV PRN ×2 (05:28→09:52)
[2020-11-29 09:00] VITALS: BP 117/71
[2020-11-29] MEDS: cefTRIAXone 1GM/50ML D5W 50 ML IV SCH (09:51)
[2020-11-29] MEDS: DULoxetine HCL 30 MG CAP PO SCH (09:52)
[2020-11-29] MEDS ORDERED: METF-372 PO (12:14)
[2020-11-29] MEDS ORDERED: POTA10TA51 PO (12:14)
[2020-11-29] MEDS ORDERED: FURO40TA4 PO (12:14)
[2020-11-29] MEDS ORDERED: DOXY-112 PO (12:14)
[2020-11-29] MEDS ORDERED: HYDROcodone-ACET 5/325MG TAB PO PRN (12:30)
[2020-11-29 12:43] VITALS: BP 127/80
== END 2020-11-29 13:30 | disposition home or self-care (01) | DRG 603 ==
LOC: ER 07:09 → OVERFLOW 11:54 → CENTRAL 15:24
PROVIDERS: ADMIT Nurse Practitioner Acute Care; ATTEND Internal Medicine
DX: L03.116 Cellulitis of left lower limb (principal); I50.32 Chronic diastolic (congestive) heart failure; E44.1 Mild protein-calorie malnutrition; L03.115 Cellulitis of right lower limb; E11.65 Type 2 diabetes mellitus with hyperglycemia; D75.89 Other specified diseases of blood and blood-forming organs; E66.01 Morbid (severe) obesity due to excess calories; F10.10 Alcohol abuse, uncomplicated; E11.22 Type 2 diabetes mellitus with diabetic chronic kidney disease; I11.0 Hypertensive heart disease with heart failure; J44.9 Chronic obstructive pulmonary disease, unspecified; Z20.822 Contact with and (suspected) exposure to COVID-19; F32.9 Major depressive disorder, single episode, unspecified; F17.210 Nicotine dependence, cigarettes, uncomplicated; Z79.84 Long term (current) use of oral hypoglycemic drugs; Z82.49 Family history of ischemic heart disease and other diseases of the circulatory system; Z79.899 Other long term (current) drug therapy; Z88.8 Allergy status to other drugs, medicaments and biological substances; Z68.39 Body mass index [BMI] 39.0-39.9, adult
CPT/HCPCS: 36415; 71046; 80053; 81001; 82550; 82962; 83735; 85025; 85610; 85730; 87081; 87426; 93005; 93971; 96361; 96365; 96367; 96375; 96376; G0378; J0696; J1815; J1885; J2405; J3490

== ENCOUNTER 2021-01-14 01:59 | Emergency (ER) | payer BC ==
[~2021-01-14] VITALS: Ht 162.6 cm; Wt 104.3 kg
[~2021-01-14 01:59] MED LIST changes: +DOXY-112 PO; +FURO40TA4 PO; +METF-372 PO; +POTA10TA51 PO
[2021-01-14 03:26] LABS: Albumin 3.1 g/dL (3.4-5.0); Calcium 8.8 mg/dL (8.5-10.1); Potassium 4.3 mmol/L (3.5-5.1)
[2021-01-14 03:30] LABS: BUN/Creatinine Ratio 19.5; Bilirubin, Total 0.7 mg/dL (0.2-1.0); Total Protein 7.5 g/dL (6.4-8.2)
[2021-01-14] MEDS ORDERED: cefTRIAXone 1GM/50ML D5W 50 ML IV ONE (07:15)
[2021-01-14] MEDS ORDERED: CLINDAMYCIN 600MG IV 50 ML IV ONE (07:15)
[2021-01-14 07:25] LABS: Eosinophils # (auto) 0.4 10 ^3/uL (0-0.8); Hemoglobin 15.1 g/dL (12.2-16.2); Lymphocytes # (auto) 1.4 10 ^3/uL (0.4-5.4); Lymphocytes % (auto) 23.4 % (10.0-50.0); Mean Corpuscular Volume 96.9 fL (80.0-100.0); Monocytes # (auto) 0.5 10 ^3/uL (0-1.3); Neutrophils # (auto) 3.5 10 ^3/uL (1.6-8.6); Nucleated Red Blood Cells % 0.1 %; White Blood Cell 5.8 10^3/uL (4.4-10.8)
[2021-01-14 07:27] LABS: Basophils # (auto) 0 10 ^3/uL (0-0.2); Basophils % (auto) 0.5 % (0.0-2.0); Eosinophils % (auto) 7.4 % (0.0-7.0); Hematocrit 42.1 % (36.0-46.0); Mean Corpuscular Hemoglobin 34.8 pg (28.0-32.0); Mean Corpuscular Hgb Conc. 35.8 g/dL (32.0-36.0); Monocytes % (auto) 8.6 % (0.0-12.0); Neutrophils % (auto) 60.1 % (37.0-80.0); Red Blood Cells 4.34 10^6/uL (4.0-5.20); Red Cell Distribution Width 15.1 % (11.8-14.3)
[2021-01-14] MEDS ORDERED: HYDROcodone-ACET 5/325MG TAB PO ONE (09:15)
[2021-01-14 10:39] VITALS: BP 130/66
== END 2021-01-14 10:39 | disposition home or self-care (01) ==
LOC: ER 01:59
DX: L03.116 Cellulitis of left lower limb (principal); E11.65 Type 2 diabetes mellitus with hyperglycemia; I10 Essential (primary) hypertension; F17.210 Nicotine dependence, cigarettes, uncomplicated; Z90.49 Acquired absence of other specified parts of digestive tract; Z90.89 Acquired absence of other organs; Z79.899 Other long term (current) drug therapy; Z79.2 Long term (current) use of antibiotics; Z88.1 Allergy status to other antibiotic agents; Z88.8 Allergy status to other drugs, medicaments and biological substances
CPT/HCPCS: 36415; 80053; 83605; 87040; 96365; 96368; 99284; J0696; J3490

== ENCOUNTER 2021-03-13 13:48 | Emergency (ER) | payer BC ==
[~2021-03-13] VITALS: Ht 162.6 cm; Wt 104.3 kg
[2021-03-13] MEDS ORDERED: traMADol HCL 50 MG TAB PO ONE (15:15)
[2021-03-13 15:24] VITALS: BP 174/92
== END 2021-03-13 16:04 | disposition home or self-care (01) ==
LOC: ER 13:48
DX: L01.00 Impetigo, unspecified (principal); E11.9 Type 2 diabetes mellitus without complications; I10 Essential (primary) hypertension; F17.210 Nicotine dependence, cigarettes, uncomplicated; Z88.1 Allergy status to other antibiotic agents